=== PATIENT | male | born 1960 | race Caucasian/White ===

== ENCOUNTER 2020-08-10 13:23 | Emergency (ER) | payer SELFPAY ==
[2020-08-10 13:39] VITALS: BP 111/72
--- NOTE | 2020-08-10 14:08 | ER Document Report ---
ED Medical Screen (RME) - General Chief Complaint: Foot Injury Stated Complaint: FOOT INJURY - LEFT Time Seen by Provider: 08/10/20 13:59 Mode of Arrival: Wheelchair Information source: Patient Notes: 59-year-old male presented to ED for complaint of redness swelling inflammation and pain in his left foot. He states he was taking the drug trash out on Friday and he stomped on a piece of metal from a drive shaft. He states he thought he could take it and went to work on Friday but the pain got so bad and the foot got so swollen that he had to come into the emergency room. He does have redness and inflammation up to the ankle. There is injuries to between the third and fourth toes. 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 He does smoke 4 cigarettes a week drinks maybe once or twice a week and does not use any illicit drugs. He states he is homeless at the moment but can stay at his daughter's house if needed. I have greeted and performed a rapid initial assessment of this patient. A comprehensive ED assessment and evaluation of the patient, analysis of test results and completion of medical decision making process will be conducted by an additional ED providers. - Related Data Allergies/Adverse Reactions: ampicillin Allergy (Verified 08/10/20 13:57) Past Medical History - Social History Frequency of alcohol use: None Drug Abuse: None Physical Exam - Vital signs Vitals: Temp Pulse Resp BP Pulse Ox 98.5 F 72 18 111/72 98 08/10/20 13:34 08/10/20 13:34 08/10/20 13:34 08/10/20 13:34 08/10/20 13:34 Course - Vital Signs Vital signs: Temp Pulse Resp BP Pulse Ox 98.5 F 72 18 111/72 98 08/10/20 13:34 08/10/20 13:34 08/10/20 13:34 08/10/20 13:34 08/10/20 13:34
[2020-08-10 14:43] LABS: APPEARANCE,URINE SLIGHTLY-CLOUDY; BILIRUBIN,URINE NEGATIVE (NEGATIVE); COLOR,URINE YELLOW; GLUCOSE, URINE NEGATIVE (NEGATIVE); KETONES,URINE NEGATIVE (NEGATIVE); LEUKOCYTE ESTERASE,URINE NEGATIVE (NEGATIVE); NITRITE,URINE NEGATIVE (NEGATIVE); PROTEIN,URINE NEGATIVE (NEGATIVE); URINE SPECIFIC GRAVITY 1.024; UROBILINOGEN,URINE NEGATIVE mg/dL (<2.0)
[2020-08-10 14:47] LABS: ABSOLUTE EOSINOPHILS # (AUTO) 0.1 10^3/uL (0.0-0.6); ABSOLUTE LYMPHOCYTES (AUTO) 1.3 10^3/uL (0.5-4.7); ABSOLUTE NEUT (AUTO) 5.2 10^3/uL (1.7-8.2); BASOPHILS % (AUTO) 0.4 % (0-2); EOSINOPHILS % (AUTO) 1.9 % (0-6); HEMATOCRIT 42.4 % (37.9-51.0); HEMOGLOBIN 14.6 g/dL (13.5-17.0); MEAN CORPUSCULAR HEMOGLOBIN 34.2 pg (27.0-33.4); MEAN CORPUSCULAR HGB CONC 34.3 g/dL (32.0-36.0); MEAN CORPUSCULAR VOLUME 100 fl (80-97); MONOCYTES % (AUTO) 12.7 % (3-13); PLATELET COUNT 258 10^3/uL (150-450); RED BLOOD COUNT 4.25 10^6/uL (4.35-5.55); RED CELL DISTRIBUTION WIDTH 12.9 % (11.5-14.0); TOTAL CELLS COUNTED % (AUTO) 100 %; WHITE BLOOD COUNT 7.7 10^3/uL (4.0-10.5)
[2020-08-10 15:05] LABS: URINE AMPHETAMINES SCREEN NEGATIVE; URINE BARBITURATES SCREEN NEGATIVE; URINE BENZODIAZEPINES SCREEN NEGATIVE; URINE COCAINE SCREEN NEGATIVE; URINE METHADONE SCREEN NEGATIVE; URINE PHENCYCLIDINE SCREEN NEGATIVE
[2020-08-10 15:07] LABS: URINE MARIJUANA (THC) SCREEN UNCONFIRMED POSITIVE
[2020-08-10 15:12] LABS: ALBUMIN 4.3 g/dL (3.5-5.0); ALKALINE PHOSPHATASE 84 U/L (38-126); ANION GAP 5 (5-19); ASPARTATE AMINO TRANSFERASE 48 U/L (17-59); BILIRUBIN,DIRECT 0.3 mg/dL (0.0-0.4); BILIRUBIN,TOTAL 0.6 mg/dL (0.2-1.3); BLOOD UREA NITROGEN 15 mg/dL (7-20); C-REACTIVE PROTEIN 16.1 mg/L (<10.0); CALCIUM 9.7 mg/dL (8.4-10.2); CARBON DIOXIDE 28 mmol/L (22-30); CHLORIDE 106 mmol/L (98-107); GLUCOSE 99 mg/dL (75-110); POTASSIUM 4.5 mmol/L (3.6-5.0); TOTAL PROTEIN 7.4 g/dL (6.3-8.2)
--- NOTE | 2020-08-10 15:22 | RADIOLOGY REPORT (SQ) ---
EXAM DESCRIPTION: FOOT LEFT COMPLETE IMAGES COMPLETED DATE/TIME: 08/10/2020 2:59 pm REASON FOR STUDY: injury pain swelling erythema COMPARISON: None. NUMBER OF VIEWS: Three views. TECHNIQUE: AP, lateral and oblique radiographic images acquired of the left foot. LIMITATIONS: None. FINDINGS: MINERALIZATION: Normal. BONES: No acute fracture or dislocation. No worrisome bone lesions. JOINTS: No effusions. SOFT TISSUES: No soft tissue swelling. No foreign body. OTHER: No other significant finding. IMPRESSION: NEGATIVE STUDY OF THE LEFT FOOT. NO RADIOGRAPHIC EVIDENCE OF ACUTE INJURY. TECHNICAL DOCUMENTATION: JOB ID: [id number] 2010 [employer]- All Rights Reserved Reading location - IP/workstation name: [email or web address]
[2020-08-10 15:26] LABS: ERYTHROCYTE SEDIMENTATION RATE 12 mm/hr (0-20)
--- NOTE | 2020-08-10 16:17 | ER Document Report ---
ED Extremity Problem, Lower - General Chief Complaint: Foot Injury Stated Complaint: FOOT INJURY - LEFT Time Seen by Provider: 08/10/20 13:59 Primary Care Provider: OCDY DO MD [COMMUNITY BASED STAFF] - Follow up as needed Mode of Arrival: Wheelchair - HPI Patient complains to provider of: Injury, Pain, Swelling Location: 3rd Toe, 4th Toe Occurred: Yesterday Where: Home Onset/Duration: Sudden Quality of pain: Sharp Context: Barefoot Recent injury: Yes Exacerbated by: Movement, Walking Notes: Patient is a 59-year-old male who presents with a left foot injury that occurred yesterday. Patient states he was taking out the trash barefoot and stubbed his left toe on a steel plate. States that there is pain with movement of the toes and walking. He has not taken anything for pain. He denies any other injuries. He denies any other symptoms. He has never broken his foot in the past. He has been placing ice on the injury. - Related Data Allergies/Adverse Reactions: ampicillin Allergy (Verified 08/10/20 13:57) Past Medical History - General Information source: Patient - Social History Smoking Status: Current Every Day Smoker Frequency of alcohol use: Occasional Drug Abuse: None Family History: Reviewed & Not Pertinent Review of Systems - Review of Systems Notes: CONSTITUTIONAL: No fever, fatigue or weight loss. SKIN: Abrasion to left 3rd and 4th toe. HENT: No congestion, ear pain, or sore throat. EYES: No recent vision problems or eye pain. ENDOCRINE: No thyroid problems. No polyuria or polydipsia. CARDIOVASCULAR: No chest pain or edema. RESPIRATORY: No cough, shortness of breath, congestion, or wheezing. GASTROINTESTINAL: No abdominal pain, nausea, vomiting, bloody stools or diarrhea. GENITOURINARY: No dysuria. MUSCULOSKELETAL: Pain to left foot. LYMPHATIC: No swollen glands. NEUROLOGIC: No seizures. No headache, focal weakness or sensory changes. HEMATOLOGIC: No unusual bruising or bleeding. PSYCHIATRIC: No depression or anxiety. Physical Exam - Vital signs Vitals: Temp Pulse Resp BP Pulse Ox 98.5 F 72 18 111/72 98 08/10/20 13:34 08/10/20 13:34 08/10/20 13:34 08/10/20 13:34 08/10/20 13:34 VITAL SIGNS: Within normal limits. GENERAL: No acute distress, non-toxic appearance. HEAD: Normal with no signs of head trauma. EYES: EOMI, conjunctiva normal, no discharge. EARS: Hearing grossly intact. NOSE: Normal. NECK: Normal range of motion, no tenderness, supple, no lymphadenopathy, No ad enopathy, no JVD. CHEST: Clear breath sounds bilaterally. No wheezes, rales, or rhonchi. CARDIAC: Regular rate and rhythm. S1 and S2, without murmurs, gallops, or rubs. VASCULAR: No Edema. Peripheral pulses normal and equal in all extremities. ABDOMEN: Normal and soft with no tenderness GASTROINTESTINAL: Bowel sounds normal GENITOURINARY: Normal, No tenderness LYMPATHTIC: No lymphadenopathy noted. MUSCULOSKELETAL: Swelling to left foot. Abrasion to left third and fourth toe. Range of motion limited due to pain. Strong dorsalis pedis pulse. NEUROLOGICAL: Alert and oriented x 3. No focal sensory or strength deficits. Speech normal. Follows commands appropriately. PSYCHIATRIC: Normal Affect, judgement and mood. SKIN: Normal appearance with no rashes or lesions. Course - Re-evaluation Re-evalutation: 08/11/20 00:59 Patient appears well on exam. His x-ray was negative for fracture. Patient's lab work was reviewed. He does have a slightly elevated CRP. This is nonspecific, and I am unsure the significance of this. The foot does not appear infected. His ESR is normal. Patient was offered a postop shoe and crutches. He declined the crutches. Patient was given Toradol. I instructed him to rest, ice, elevate the extremity. He was told to follow-up with his PCP. Patient states he has not had a tetanus in a significant at a time. Due to the abrasions on the toe, tetanus was ordered. Patient was given strict return precautions. - Vital Signs Vital signs: Temp Pulse Resp BP Pulse Ox 98.5 F 72 18 111/72 98 08/10/20 13:34 08/10/20 13:34 08/10/20 13:34 08/10/20 13:34 08/10/20 13:34 - Laboratory Result Diagrams: 08/10/20 14:25 08/10/20 14:25 Laboratory results interpreted by me: 08/10/20 08/10/20 14:25 14:25 RBC 4.25 L MCV 100 H MCH 34.2 H ALT 71 H C-Reactive Protein 16.1 H - Diagnostic Test Radiology reviewed: Image reviewed, Reports reviewed Discharge - Discharge Clinical Impression: Injury of left foot Qualifiers: Encounter type: initial encounter Qualified Code(s): S99.922A - Unspecified injury of left foot, initial encounter Condition: Good Disposition: HOME, SELF-CARE Instructions: Elevate the Injury ([facility]) Additional Instructions: Please follow-up with your family doctor. Rest and elevate the foot. Please return for any worsening symptoms, pain, fevers, chills. Forms: Return to Work Referrals: CODY DO MD [COMMUNITY BASED STAFF] - Follow up as needed
[2020-08-10] MEDS ORDERED: KETOROLAC TROMETHAMINE 60 MG/2 ML SDV IM ONE (16:19)
[2020-08-10] MEDS ORDERED: DIPH/PERTUSS(ACELL)/TETANUS VAC/PF 0.5 ML SYR (>=10YO) IM ONE (17:23)
== END 2020-08-10 18:21 | disposition home or self-care (01) ==
LOC: ER 13:23
DX: S90.415A Abrasion, left lesser toe(s), initial encounter (principal); W22.09XA Striking against other stationary object, initial encounter; Y93.E9 Activity, other interior property and clothing maintenance; Y92.009 Unspecified place in unspecified non-institutional (private) residence as the place of occurrence of the external cause; F17.200 Nicotine dependence, unspecified, uncomplicated
CPT/HCPCS: 99284; 96372; 36415; 87040; 85025; 85652; 86140; 80053; 81001; 80307; 73630; J1885